=== PATIENT | male | born 1975 | race African-American/Black ===

== ENCOUNTER 2018-02-26 19:57 | Emergency (ER) | payer SELFPAY ==
[~2018-02-26] VITALS: Ht 170.2 cm; Wt 69.0 kg
[2018-02-27] MEDS ORDERED: IBUPROFEN 600MG TABLET PO ONE (04:30)
[2018-02-27 06:14] VITALS: BP 121/83
== END 2018-02-27 06:17 | disposition home or self-care (01) ==
LOC: ER 19:57
DX: B35.3 Tinea pedis (principal); L03.031 Cellulitis of right toe; Z72.0 Tobacco use; F12.90 Cannabis use, unspecified, uncomplicated
CPT/HCPCS: 73630; 99283